=== PATIENT | male | born 1980 | race African-American/Black ===

== ENCOUNTER 2022-11-25 17:21 | Emergency (ER) | payer SELFPAY ==
[2022-11-25 17:31] VITALS: BP 115/72; PULSE 78; RESP 16; O2SAT 98; BMI 19.9
--- NOTE | 2022-11-25 17:47 | ED_ITS ---
HPI - General Adult General Chief complaint: Dental/Oral Stated complaint: chipped tooth Time Seen by Provider: 11/25/22 17:37 Source: patient Mode of arrival: walk-in History of Present Illness HPI narrative: patient is a 42-year-old male who presents to the emergency department for a chipped tooth. He states one hour ago he was eating a freeze pop when he bit down and broke tooth #8 at the distal aspect of the tooth. There is approxim ately 2 mm avulsed from the distal aspect of the tooth, he states he called his dentist office and has an appointment tomorrow presents to the emergency department because I need something for the pain . He has had no drainage or bleeding, no direct injury or trauma. No medications taken prior to arrival. Related Data Previous Rx's Medication Instructions Recorded ketorolac 10 mg tablet 10 mg PO TID PRN pain #10 tabs 11/25/22 Allergies Allergy/AdvReac Type Severity Reaction Status Date / Time No Known Drug Allergies Allergy Verified 11/25/22 17:31 Review of Systems ROS Constitutional Denies: fever or chills Ears, nose, mouth, and throat Denies: throat pain Cardiovascular Denies: chest pain Respiratory Denies: shortness of breath Gastrointestinal Denies: nausea or vomiting Musculoskeletal Denies: back pain or neck pain Integumentary/Breast Denies: rash Neurological Denies: headache Exam Narrative Exam Narrative: Gen.: Awake, alert, in no distress Head: Normocephalic, atraumatic ENT: Moist mucous membranes; 2 mm corner of the distal aspect of tooth #8 is avulsed, no deep root exposure, no avulsion of the gumline or active bleeding. Airway widely open and patent. Respiratory: No respiratory distress Extremities: Moves extremities equally Psych: Normal mood and affect Neuro: No focal neuro deficit Skin: Warm, dry, intact Constitutional Vital Signs, click to edit/add: Last Vital Signs Pulse 78 11/25/22 17:31 Resp 16 11/25/22 17:31 BP 115/72 11/25/22 17:31 Pulse Ox 98 11/25/22 17:31 O2 Del Method Room Air 11/25/22 17:38 Course Vital Signs Vital signs: Vital Signs Pulse Rate 78 11/25/22 17:31 Respiratory Rate 16 11/25/22 17:31 Blood Pressure 115/72 11/25/22 17:31 Pulse Oximetry 98 11/25/22 17:31 Oxygen Delivery Method Room Air 11/25/22 17:31 Pulse Rate 78 11/25/22 17:31 Respiratory Rate 16 11/25/22 17:31 Blood Pressure 115/72 11/25/22 17:31 Pulse Oximetry 98 11/25/22 17:31 Oxygen Delivery Method Room Air 11/25/22 17:38 Medical Decision Making MDM Narrative Medical decision making narrative: patient was instructed of the limitations of the emergency department for acute dental trauma, he will be placed on Toradol and topical analgesia, follow-up with dentist tomorrow and return to the Emergency Room if symptoms change or worsen. Medical Records Medical records reviewed: Yes I reviewed the patient's medical records Discharge Plan Discharge Chief Complaint: Dental/Oral Clinical Impression: Fracture of tooth Patient Disposition: Home, Self-Care Time of Disposition Decision: 17:47 Condition: Good Mode of Transportation: Private Vehicle Prescriptions / Home Meds: New ketorolac 10 mg tablet 10 mg PO TID PRN (Reason: pain) Qty: 10 0RF Instructions: Acute Dental Trauma (ED) Additional Instructions: Follow up with your dentist as scheduled Stand Alone Forms: Portal Instructions Referrals: Physician,Non-Staff, MD [Primary Care Provider] - 1 week Discharge Date/Time: 11/25/22 18:11
[2022-11-25] MEDS: BENZOCAINE 30 ML, lidocaine HCL 15 ML MM (18:08)
== END 2022-11-25 18:11 | disposition home or self-care (01) ==
PROVIDERS: Emergency Provider Emergency Medicine
DX: S02.5XXA Fracture of tooth (traumatic), initial encounter for closed fracture (principal); X58.XXXA Exposure to other specified factors, initial encounter
CPT/HCPCS: 99283

== ENCOUNTER 2025-01-05 16:25 | Emergency (ER) | payer SELFPAY ==
[2025-01-05 16:30] VITALS: BP 135/83; PULSE 77; TEMP 37.2; O2SAT 98; BMI 22.2
--- NOTE | 2025-01-05 16:37 | ED.DENTAL1 ---
HPI - Dental/Oral General Chief complaint: Dental/Oral Stated complaint: ORAL ABCESS Time Seen by Provider: 01/05/25 16:36 Source: patient Mode of arrival: walk-in Limitations: no limitations History of Present Illness HPI Narrative: Patient is coming to the ER with a 3 days history of right upper dental pain that started all of a sudden. Patient mentioned that he already had a history of dental decay and he was supposed to go for the dentist but he did not have an appointment early, patient denies any difficulty breathing or difficulty swallowing he denies any other complaints he does not have any fever or facial swelling Related Data Previous Rx's ?Medication ?Instructions ?Recorded ketorolac 10 mg tablet 10 mg PO TID PRN pain #10 tabs 11/25/22 amoxicillin 875 mg-potassium 1 tab PO Q12H #14 tabs 01/05/25 clavulanate 125 mg tablet diclofenac sodium 75 mg 75 mg PO BID PRN pain #20 tabs 01/05/25 tablet,delayed release Allergies Allergy/AdvReac Type Severity Reaction Status Date / Time No Known Drug Allergies Allergy Verified 01/05/25 16:30 Review of Systems ROS Status of ROS 10 or more systems reviewed and unremarkable except as noted in history and below PFSH PFSH Social History Little interest or pleasure in doing things: not at all Feeling down, depressed, or hopeless: not at all Exam Narrative Exam Narrative: Nurses notes and vital signs reviewed and patient is not hypoxic. General: Well-appearing and in no apparent distress. Skin: Warm, dry, no pallor noted. No rash. Head: Normocephalic, atraumatic. Neck: Supple, non-tender. dental exam : Patient has patent airway there is no tongue or lip swelling and the patient have the right #1 tooth is decayed with a gum that is mildly inflamed no significant swelling in the area Constitutional Vital Signs, click to edit/add: Last Vital Signs Temp 98.9 F 01/05/25 16:30 Pulse 77 01/05/25 16:30 Resp 18 01/05/25 16:30 BP 135/83 01/05/25 16:30 Pulse Ox 98 01/05/25 16:30 O2 Del Method Room Air 01/05/25 16:30 Course Vital Signs Vital signs: Vital Signs Temperature 98.9 F 01/05/25 16:30 Pulse Rate 77 01/05/25 16:30 Respiratory Rate 18 01/05/25 16:30 Blood Pressure 135/83 01/05/25 16:30 Pulse Oximetry 98 01/05/25 16:30 Oxygen Delivery Method Room Air 01/05/25 16:30 Temperature 98.9 F 01/05/25 16:30 Pulse Rate 77 01/05/25 16:30 Respiratory Rate 18 01/05/25 16:30 Blood Pressure 135/83 01/05/25 16:30 Pulse Oximetry 98 01/05/25 16:30 Oxygen Delivery Method Room Air 01/05/25 16:30 MDM - Dental/Oral MDM Narrative Medical decision making narrative: Presenting to us with dental pain mostly secondary to dental infection right now he was treated with Augmentin as well as Voltaren prescription to go home with He was treated in the ER with a local dental anesthesia The patient is to follow up with primary care physician in next 2-3 days or to return to the emergency department should any of the signs or symptoms worsen or new symptoms develop. The patient agrees with the following Diagnosis and Treatment plan and the patient will be discharged home. Discharge Plan Discharge Chief Complaint: Dental/Oral Clinical Impression: Toothache, Dental caries Patient Disposition: Home, Self-Care Time of Disposition Decision: 16:37 Condition: Good Prescriptions / Home Meds: New amoxicillin-pot clavulanate 875-125 mg tablet 1 tab PO Q12H Qty: 14 0RF diclofenac sodium 75 mg tablet,delayed release (DR/EC) 75 mg PO BID PRN (Reason: pain) Qty: 20 0RF No Action ketorolac 10 mg tablet 10 mg PO TID PRN (Reason: pain) Qty: 10 0RF Print Language: [place] Instructions: Toothache (ED) Referrals: Physician,Non-Staff, MD [Primary Care Provider] - 1 week
[2025-01-05] MEDS: AMOXICILLIN/POT CLAV 875-125 MG TABLET 1 TAB PO (16:51)
[2025-01-05] MEDS: BENZOCAINE 30 ML, lidocaine HCL 15 ML MM (16:52)
[2025-01-05] MEDS: KETOROLAC TROMETHAMINE 10 MG TABLET 20 MG PO (17:01)
== END 2025-01-05 17:03 | disposition home or self-care (01) ==
PROVIDERS: Emergency Provider Emergency Medicine
DX: K08.89 Other specified disorders of teeth and supporting structures (principal); K02.9 Dental caries, unspecified
CPT/HCPCS: 99284